=== PATIENT | male | born 1960 | race African-American/Black ===

== ENCOUNTER 2025-02-19 20:14 | Inpatient (IN) | payer MEDICAID ==
[~2025-02-19] VITALS: Ht 185.4 cm; Wt 93.9 kg
[2025-02-19] MEDS ORDERED: DEXAMETHASONE 2MG TABLET PO ONE (21:15)
[2025-02-19 21:40] LABS: BASOPHILS % 0.3 % (0.0-2.0); HEMATOCRIT. 43.4 % (42.0-52.0); HEMOGLOBIN. 13.9 g/dL (14.0-18.0); LYMPHOCYTES % 11.8 % (20.0-50.0); MEAN CORPUSCULAR HEMOGLOBIN 28.1 pg (28.0-32.0); MEAN CORPUSCULAR VOLUME 87.8 fL (80.0-94.0); MEAN PLATELET VOLUME 9.7 fl (7.4-10.4); MONOCYTES % 6.7 % (2.0-8.0); NEUTROPHILS % 81.2 % (40.0-76.0); PLATELET 167 x1000/uL (130-400); RED BLOOD CELL COUNT 4.95 mill/uL (4.7-6.1); RED CELL DISTRIBUTION WIDTH 13.9 % (11.6-14.6); WHITE BLOOD COUNT 8.1 x1000/uL (4.5-11.0)
[2025-02-19 21:43] LABS: CHLORIDE 94 mEq/L (98-107); POTASSIUM 3.9 mEq/L (3.5-5.1); SODIUM 134 mEq/L (136-145)
[2025-02-19 21:44] LABS: CALCIUM 11.1 mg/dL (8.7-10.4); CARBON DIOXIDE 28 mEq/L (21-32)
[2025-02-19 21:49] LABS: CREATININE 2.8 mg/dL (0.6-1.3); GLUCOSE 140 mg/dL (70-105); UREA NITROGEN BLOOD 36 mg/dL (9-23)
[2025-02-19 21:56] LABS: TROPONIN I HIGH SENSITIVITY 93 ng/L (3.0-53)
[2025-02-19] MEDS: AMLODIPINE 10MG TABLET PO ONE (22:06)
[2025-02-19] MEDS: ONDANSETRON HCL 4MG/2ML INJ IM ONE (22:06)
[2025-02-19] MEDS: DEXAMETHASONE 4MG/ML 1ML VIAL IV ONE (22:07)
[2025-02-19] MEDS ORDERED: ENOXAPARIN 80MG/0.8ML SYR SUBCUT NR (22:15)
[2025-02-19] MEDS: ENOXAPARIN 100MG/ML SYR SUBCUT NR (22:29)
[2025-02-19] MEDS: ASPIRIN 325MG EC TABLET PO NR (22:29)
[2025-02-19] MEDS: HYDRALAZINE 20MG/ML VIAL IV ONE (23:13)
[2025-02-19] MEDS: MAGNESIUM 2 G PREMIX 50 ML IV ONE (23:18)
[2025-02-19] MEDS: FUROSEMIDE 100MG/10ML VIAL IVP ONE (23:20)
[2025-02-20] MEDS: HYDRALAZINE 20MG/ML VIAL IV ONE (02:55)
[2025-02-20] MEDS: HYDRALAZINE 20MG/ML VIAL IV NR (03:10)
[2025-02-20 03:51] VITALS: BP 166/92; PULSE 99; RESP 22; TEMP 36.2
[2025-02-20] MEDS ORDERED: ATOR-2 PO (04:21)
[2025-02-20] MEDS ORDERED: AMLO10TA80 PO (04:21)
[2025-02-20] MEDS ORDERED: METF-416 PO (04:21)
[2025-02-20] MEDS ORDERED: LOSA100T33 PO (04:21)
[2025-02-20] MEDS ORDERED: METO-396 PO (04:21)
[2025-02-20] MEDS ORDERED: ASPI-1497 PO (04:21)
[2025-02-20] MEDS ORDERED: DEXTROSE 50% WATER 50ML SYRINGE IV PRN (04:45)
[2025-02-20] MEDS: ONDANSETRON HCL 4MG/2ML INJ IV PRN (05:05)
[2025-02-20] MEDS: BLOOD SUGAR DIAGNOSTIC STRIP TEST SCH (07:20)
[2025-02-20] MEDS ORDERED: METFORMIN HCL 500MG TABLET PO SCH (07:50)
[2025-02-20 08:00] VITALS: BP 190/94; PULSE 91; RESP 17; TEMP 36.8; O2SAT 98
[2025-02-20] MEDS: METOPROLOL SUCCINATE 25MG ER TABLET PO SCH (08:22)
[2025-02-20] MEDS: AMLODIPINE 10MG TABLET PO SCH (08:22)
[2025-02-20] MEDS: ASPIRIN 81MG EC TABLET PO SCH (08:23)
[2025-02-20] MEDS: LOSARTAN 100 MG TABLET PO SCH (08:23)
[2025-02-20] MEDS: ENOXAPARIN 30MG/0.3ML SYR SUBCUT SCH (08:24)
[2025-02-20] MEDS: PANTOPRAZOLE SODIUM 40 MG/VIAL IV SCH (08:24)
[2025-02-20] MEDS ORDERED: MEDICATION NOT ON FORMULARY EA (Metformin Hcl 1 TAB) PO SCH (09:00)
[2025-02-20] MEDS ORDERED: HYDRALAZINE 20MG/ML VIAL IV PRN (09:00)
[2025-02-20] MEDS ORDERED: MEDICATION NOT ON FORMULARY EA (Atorvastatin Calcium 1 TAB) PO SCH (09:00)
[2025-02-20] MEDS: DOXAZOSIN MESYLATE 2MG TABLET PO SCH (09:47)
[2025-02-20] MEDS: INSULIN LISPRO 100 UNITS/ML SUBCUT SCH (09:58)
[2025-02-20 10:28] LABS: HEMATOCRIT. 41.1 % (42.0-52.0); HEMOGLOBIN. 13.5 g/dL (14.0-18.0); MEAN CORPUSCULAR HEMOGLOBIN 28.1 pg (28.0-32.0); MEAN CORPUSCULAR HGB CONC 32.8 g/dL (31.0-37.0); MEAN CORPUSCULAR VOLUME 85.8 fL (80.0-94.0); MEAN PLATELET VOLUME 9.5 fl (7.4-10.4); PLATELET 188 x1000/uL (130-400); RED BLOOD CELL COUNT 4.79 mill/uL (4.7-6.1); RED CELL DISTRIBUTION WIDTH 13.9 % (11.6-14.6); WHITE BLOOD COUNT 8.5 x1000/uL (4.5-11.0)
[2025-02-20 10:33] LABS: DIFFERENTIAL COMMENT 1
[2025-02-20 10:41] LABS: CHLORIDE 90 mEq/L (98-107); POTASSIUM 3.8 mEq/L (3.5-5.1); SODIUM 131 mEq/L (136-145)
[2025-02-20 10:43] LABS: CALCIUM 10.7 mg/dL (8.7-10.4); CARBON DIOXIDE 27 mEq/L (21-32)
[2025-02-20 10:48] LABS: CREATININE 2.8 mg/dL (0.6-1.3); GLUCOSE 163 mg/dL (70-105)
[2025-02-20 10:49] LABS: LDL CHOLESTEROL 80 mg/dL (5-100); TRIGLYCERIDE 68 mg/dL (0-150); UREA NITROGEN BLOOD 45 mg/dL (9-23)
[2025-02-20 10:50] LABS: ALANINE AMINOTRANSFERASE 42 IU/L (10-49); ALBUMIN 5.8 g/dL (3.2-4.8); ASPARTATE AMINOTRANSFERASE 76 IU/L (<34); CHOLESTEROL 248 mg/dL (<200); HDL CHOLESTEROL 120 mg/dL (>55)
[2025-02-20 10:51] LABS: BILIRUBIN TOTAL 0.8 mg/dL (0.1-1.0); PROTEIN TOTAL 9.2 g/dL (6.0-8.3)
[2025-02-20 11:07] LABS: TROPONIN I HIGH SENSITIVITY 67 ng/L (3.0-53)
[2025-02-20] MEDS: SODIUM CHLORIDE 0.9% 1,000 ML IV SCH (11:51)
[2025-02-20] MEDS: ACETAMINOPHEN 325MG TABLET PO PRN (11:51)
[2025-02-20 12:00] VITALS: BP 151/87; PULSE 88; RESP 17; TEMP 36.3; O2SAT 98
[2025-02-20 12:02] LABS: CREATINE KINASE 556 IU/L (46-171)
[2025-02-20 13:12] LABS: PLATELET ESTIMATE NORMAL
[2025-02-20] MEDS: HYDRALAZINE HCL 50MG TABLET PO SCH (14:14)
[2025-02-20 16:00] VITALS: BP 110/60; PULSE 87; RESP 14; TEMP 36.6; O2SAT 100
[2025-02-20 19:00] VITALS: BP_SYST 121; BP_SYST 85; BP_SYST 92; BP_DIAS 47; BP_DIAS 53; BP_DIAS 56
[2025-02-20 20:00] VITALS: BP 118/57; PULSE 90; RESP 19; TEMP 36.6; O2SAT 100
[2025-02-20] MEDS: ATORVASTATIN CALCIUM 40MG TABLET PO SCH (20:29)
[2025-02-20 21:10] LABS: THYROID STIMULATING HORMONE 1.59 uIU/mL (0.55-4.78)
[2025-02-21] VITALS (8 sets, daily range): BP systolic 92–140; BP diastolic 44–77; PULSE 68–86; RESP 16–19; TEMP 36.4–36.7; O2SAT 96–99
[2025-02-21 03:22] LABS: CLARITY URINE CLEAR (CLEAR); COLOR URINE YELLOW (YELLOW); GLUCOSE URINE NEGATIVE (NEGATIVE); KETONES URINE NEGATIVE (NEGATIVE); LEUKOCYTE ESTERASE URINE NEGATIVE (NEGATIVE); NITRITE URINE NEGATIVE (NEGATIVE); OCCULT BLOOD URINE NEGATIVE (NEGATIVE); PROTEIN URINE 1+ (NEGATIVE)
[2025-02-21 03:34] LABS: *AMPHETAMINES SCREEN URINE NEGATIVE (NEGATIVE); *BARBITURATES SCREEN URINE NEGATIVE (NEGATIVE); *BENZODIAZEPINES SCREEN URINE NEGATIVE (NEGATIVE); *COCAINE SCREEN URINE NEGATIVE (NEGATIVE); CANNABINOID URINE SCREEN NEGATIVE (NEGATIVE); ECSTASY MDMA SCREEN URINE NEGATIVE (NEGATIVE); METHADONE URINE SCREEN NEGATIVE (NEGATIVE); OPIATES URINE SCREEN NEGATIVE (NEGATIVE); PHENCYCLIDINE URINE SCREEN NEGATIVE (NEGATIVE)
[2025-02-21 04:16] LABS: RBC URINE NONE SEEN /hpf (0-2); WBC URINE 0-2 /hpf (0-2)
[2025-02-21 04:17] LABS: BACTERIA URINE NONE SEEN; SQUAMOUS EPITHELIAL CELL URINE FEW /lpf (RARE/1+)
[2025-02-21 04:19] LABS: HYALINE CASTS URINE 0-5 /lpf
[2025-02-21 06:34] LABS: BASOPHILS % 0.2 % (0.0-2.0); HEMATOCRIT. 35.5 % (42.0-52.0); HEMOGLOBIN. 11.6 g/dL (14.0-18.0); LYMPHOCYTES % 11.9 % (20.0-50.0); MEAN CORPUSCULAR HEMOGLOBIN 28.3 pg (28.0-32.0); MEAN CORPUSCULAR HGB CONC 32.6 g/dL (31.0-37.0); MEAN CORPUSCULAR VOLUME 86.9 fL (80.0-94.0); MONOCYTES % 8.8 % (2.0-8.0); NEUTROPHILS % 79.1 % (40.0-76.0); PLATELET 157 x1000/uL (130-400); RED BLOOD CELL COUNT 4.09 mill/uL (4.7-6.1); WHITE BLOOD COUNT 7.3 x1000/uL (4.5-11.0)
[2025-02-21 07:06] LABS: CALCIUM 9.8 mg/dL (8.7-10.4)
[2025-02-21] MEDS: POLYETHYLENE GLYCOL 3350 (17GM) 1 DOSE PACK PO SCH (17:06)
[2025-02-21] MEDS: SENNOSIDES 8.6MG TABLET PO SCH (21:00)
[2025-02-22] VITALS: BP_SYST 119; BP_SYST 146; BP_DIAS 56; BP_DIAS 68; PULSE 74; RESP 19; TEMP 36.9; O2SAT 99
[2025-02-22 04:00] VITALS: BP 129/62; PULSE 76; RESP 19; TEMP 36.8; O2SAT 100
[2025-02-22 07:19] LABS: CARBON DIOXIDE 27 mEq/L (21-32); CHLORIDE 96 mEq/L (98-107); POTASSIUM 3.7 mEq/L (3.5-5.1); SODIUM 135 mEq/L (136-145)
[2025-02-22 07:20] LABS: CALCIUM 9.8 mg/dL (8.7-10.4)
[2025-02-22 07:25] LABS: GLUCOSE 132 mg/dL (70-105); UREA NITROGEN BLOOD 36 mg/dL (9-23)
[2025-02-22 07:26] LABS: CREATINE KINASE 263 IU/L (46-171)
[2025-02-22 07:27] LABS: PHOSPHORUS 2.2 mg/dL (2.5-4.9)
[2025-02-22 07:33] LABS: CREATININE 1.7 mg/dL (0.6-1.3)
[2025-02-22 07:42] LABS: BASOPHILS % 0.1 % (0.0-2.0); DIFFERENTIAL COMMENT 0; EOSINOPHILS % 0.1 % (0.0-5.0); HEMATOCRIT. 33.1 % (42.0-52.0); HEMOGLOBIN. 10.8 g/dL (14.0-18.0); LYMPHOCYTES % 17.1 % (20.0-50.0); MEAN CORPUSCULAR HEMOGLOBIN 28.2 pg (28.0-32.0); MEAN CORPUSCULAR HGB CONC 32.7 g/dL (31.0-37.0); MEAN CORPUSCULAR VOLUME 86.1 fL (80.0-94.0); MONOCYTES % 10.1 % (2.0-8.0); NEUTROPHILS % 72.6 % (40.0-76.0); PLATELET 142 x1000/uL (130-400); RED BLOOD CELL COUNT 3.84 mill/uL (4.7-6.1); RED CELL DISTRIBUTION WIDTH 13.5 % (11.6-14.6); WHITE BLOOD COUNT 5.5 x1000/uL (4.5-11.0)
[2025-02-22 08:00] VITALS: BP_SYST 107; BP_SYST 116; BP_SYST 148; BP_DIAS 50; BP_DIAS 57; BP_DIAS 59; PULSE 69; RESP 18; TEMP 36.6; O2SAT 99
[2025-02-22] MEDS: POTASSIUM PHOSPHATE 20 MMOL in DEXT 5% WATER 243.3333 ML IV NR (11:36)
[2025-02-22 12:00] VITALS: BP_SYST 124; BP_SYST 127; BP_SYST 128; BP_DIAS 55; BP_DIAS 62; BP_DIAS 64; PULSE 83; RESP 17; TEMP 36.6; O2SAT 96
[2025-02-22 16:00] VITALS: BP_SYST 128; BP_SYST 131; BP_SYST 137; BP_DIAS 62; BP_DIAS 63; BP_DIAS 68; PULSE 78; RESP 17; TEMP 36.3; O2SAT 96
[2025-02-22 17:40] VITALS: BP 137/68; PULSE 78; TEMP 97.4; O2SAT 96
== END 2025-02-22 18:40 | disposition home or self-care (01) | DRG 199 ==
LOC: ER 20:25 → 6WST 02-20 00:01 → EDBEDREQ 02-20 00:06 → ENRESERV 02-20 02:18
PROVIDERS: ADMIT Internal Medicine; ATTEND Internal Medicine
DX: I16.0 Hypertensive urgency (principal); N17.0 Acute kidney failure with tubular necrosis; I21.4 Non-ST elevation (NSTEMI) myocardial infarction; E87.1 Hypo-osmolality and hyponatremia; M62.82 Rhabdomyolysis; G90.89 Other disorders of autonomic nervous system; E11.22 Type 2 diabetes mellitus with diabetic chronic kidney disease; J02.9 Acute pharyngitis, unspecified; N18.9 Chronic kidney disease, unspecified; I12.9 Hypertensive chronic kidney disease with stage 1 through stage 4 chronic kidney disease, or unspecified chronic kidney disease; E83.52 Hypercalcemia; J06.9 Acute upper respiratory infection, unspecified; D64.9 Anemia, unspecified; N28.89 Other specified disorders of kidney and ureter; R80.9 Proteinuria, unspecified; Z91.148 Patient's other noncompliance with medication regimen for other reason
CPT/HCPCS: 36415; 71045; 74018; 74176; 76770; 80048; 80053; 80061; 80305; 81003; 82550; 82962; 83036; 83735; 84100; 84443; 84484; 85025; 86060; 87070; 87430; 93306; 99291; G0378; J0360; J1100; J1650; J1815; J1940; J2405; J2470; J3475; J3490; J7030; J7060; J8540